=== PATIENT | female | born 1955 ===

== ENCOUNTER 2017-10-08 07:05 | Day surgery (SDC) | payer MEDICAID ==
[2017-10-08] MEDS ORDERED: Lactated Ringer's 1,000 ML IV ONE (07:35)
[2017-10-08] MEDS ORDERED: Midazolam 2 MG/2 ML VIAL ONE (08:05)
[2017-10-08] MEDS ORDERED: ePHEDrine 50 mg/ml Inj ONE (08:05)
[2017-10-08] MEDS ORDERED: Propofol 10 mg/ml Inj (20 ML) ONE (08:06)
[2017-10-08] MEDS ORDERED: Lidocaine 2% MPF (5 ml) Inj ONE (08:06)
[2017-10-08 08:07] VITALS: O2SAT 100
[2017-10-08 08:53] VITALS: TEMP 97
[2017-10-08 09:26] VITALS: BP 128/79; PULSE 64; RESP 14
== END 2017-10-08 09:50 | disposition home or self-care (01) ==
LOC: H.ENDO 07:05
PROVIDERS: ATTEND Internal Medicine Gastroenterology
DX: K30 Functional dyspepsia (principal); K31.9 Disease of stomach and duodenum, unspecified; K29.50 Unspecified chronic gastritis without bleeding; B96.81 Helicobacter pylori [H. pylori] as the cause of diseases classified elsewhere
CPT/HCPCS: 43239; 88305; J2250; J2704; J7120